=== PATIENT | male | born 1980 | race Caucasian/White ===

== ENCOUNTER 2017-10-14 11:12 | Inpatient (IN) | payer OTHER ==
[~2017-10-14] VITALS: Ht 170.2 cm; Wt 116.6 kg
[2017-10-14] MEDS ORDERED: ACETAZOLAMIDE500 MG PO (14:18)
[2017-10-14] MEDS ORDERED: AVAPRO300 MG PO (14:19)
[2017-10-14] MEDS ORDERED: HYDRALAZINE HCL25 MG PO (14:19)
[2017-10-14] MEDS ORDERED: AMLODIPINE-OLM1 EAC3 PO (14:19)
[2017-10-14] MEDS ORDERED: QVAR8.7 G1 IH (14:20)
[2017-10-14] MEDS ORDERED: DALIRESP500 MCG PO (14:20)
[2017-10-14] MEDS ORDERED: BEVESPI AEROS10.7 GM IH (14:20)
[2017-10-14] MEDS ORDERED: THEOPHYLLINE400 MG PO (14:20)
[2017-10-14] MEDS ORDERED: SINGULAIR4 MG PO (14:21)
== END 2017-11-05 17:55 | DRG 202 ==
LOC: ER 11:12 → MEDI 19:18
PROC: 4A033R1 Measurement of Arterial Saturation, Peripheral, Percutaneous Approach (ICD-10-PCS; principal; 2017-10-14)
PROC: 3E0F7GC Introduction of Other Therapeutic Substance into Respiratory Tract, Via Natural or Artificial Opening (ICD-10-PCS; 2017-10-14)
PROC: BW28ZZZ Computerized Tomography (CT Scan) of Head (ICD-10-PCS; 2017-10-14)
PROC: B020ZZZ Computerized Tomography (CT Scan) of Brain (ICD-10-PCS; 2017-10-14)
PROC: B246ZZZ Ultrasonography of Right and Left Heart (ICD-10-PCS; 2017-10-14)
PROC: 4A12X4Z Monitoring of Cardiac Electrical Activity, External Approach (ICD-10-PCS; 2017-10-14)
PROC: 4A00X4Z Measurement of Central Nervous Electrical Activity, External Approach (ICD-10-PCS; 2017-10-15)
PROC: B030ZZZ Magnetic Resonance Imaging (MRI) of Brain (ICD-10-PCS; 2017-10-16)
PROC: BW28ZZZ Computerized Tomography (CT Scan) of Head (ICD-10-PCS; 2017-10-17)
PROC: 02HV33Z Insertion of Infusion Device into Superior Vena Cava, Percutaneous Approach (ICD-10-PCS; 2017-10-23)
PROC: BW24ZZZ Computerized Tomography (CT Scan) of Chest and Abdomen (ICD-10-PCS; 2017-10-27)
DX: J45.41 Moderate persistent asthma with (acute) exacerbation (principal); G40.89 Other seizures; R55 Syncope and collapse; I10 Essential (primary) hypertension; E66.8 Other obesity; G93.2 Benign intracranial hypertension; W18.39XA Other fall on same level, initial encounter; Y93.89 Activity, other specified; Y92.231 Patient bathroom in hospital as the place of occurrence of the external cause; Y99.8 Other external cause status; J20.9 Acute bronchitis, unspecified; R04.0 Epistaxis
CPT/HCPCS: 70553

== ENCOUNTER 2017-12-23 10:23 | Inpatient (IN) | payer OTHER ==
[~2017-12-23] VITALS: Ht 170.2 cm; Wt 112.0 kg
[~2017-12-23 10:23] MED LIST: ACETAZOLAMIDE500 MG PO; AMLODIPINE-OLM1 EAC3 PO; AVAPRO300 MG PO; BEVESPI AEROS10.7 GM IH; DALIRESP500 MCG PO; HYDRALAZINE HCL25 MG PO; QVAR8.7 G1 IH; SINGULAIR4 MG PO; THEOPHYLLINE400 MG PO
[2017-12-23] MEDS ORDERED: KEPPRA1000 MG (11:00)
== END 2017-12-29 18:53 | disposition home or self-care (01) | DRG 101 ==
LOC: ER 10:23 → MEDJ 12:19
PROC: 4A033R1 Measurement of Arterial Saturation, Peripheral, Percutaneous Approach (ICD-10-PCS; principal; 2017-12-23)
PROC: BW24ZZZ Computerized Tomography (CT Scan) of Chest and Abdomen (ICD-10-PCS; 2017-12-23)
PROC: 3E0F7GC Introduction of Other Therapeutic Substance into Respiratory Tract, Via Natural or Artificial Opening (ICD-10-PCS; 2017-12-23)
PROC: BW28ZZZ Computerized Tomography (CT Scan) of Head (ICD-10-PCS; 2017-12-24)
PROC: 02HV33Z Insertion of Infusion Device into Superior Vena Cava, Percutaneous Approach (ICD-10-PCS; 2017-12-25)
DX: G40.409 Other generalized epilepsy and epileptic syndromes, not intractable, without status epilepticus (principal); J45.41 Moderate persistent asthma with (acute) exacerbation; R55 Syncope and collapse; E66.8 Other obesity; R09.02 Hypoxemia; I10 Essential (primary) hypertension; J20.9 Acute bronchitis, unspecified; G93.2 Benign intracranial hypertension; R04.0 Epistaxis

== ENCOUNTER 2018-01-02 21:09 | Emergency (ER) | payer OTHER ==
[~2018-01-02] VITALS: Ht 170.2 cm; Wt 0.9 kg
[~2018-01-02 21:09] MED LIST changes: +KEPPRA1000 MG
[2018-01-03] MEDS ORDERED: ALBUTEROL2.5 MG/3 M IH (07:25)
== END 2018-01-03 07:54 | disposition home or self-care (01) ==
LOC: ER 21:09
DX: G40.89 Other seizures (principal)

== ENCOUNTER 2018-03-09 13:54 | Emergency (ER) | payer OTHER ==
[~2018-03-09] VITALS: Ht 152.4 cm; Wt 116.1 kg
[~2018-03-09 13:54] MED LIST changes: +ALBUTEROL2.5 MG/3 M IH
[2018-03-10] MEDS ORDERED: DEPAKOTE ER250 MG PO (14:45)
== END 2018-03-10 16:00 | disposition home or self-care (01) ==
LOC: ER 13:54
DX: G40.89 Other seizures (principal)